=== PATIENT | female | born 1950 | race Hispanic/Latino ===

== ENCOUNTER 2017-10-29 14:01 | Emergency (ER) | payer MEDICARE ==
[2017-10-29 15:00] LABS: Basophils % (Auto) 0.7 % (0.0-1.8); Hematocrit 40.9 % (30.3-42.9); Hemoglobin 13.5 gm/dl (10.1-14.3); Mean Corpuscular HGB Conc 33 % (30-34); Mean Corpuscular Hemoglobin 29 pg (28-32); Mean Corpuscular Volume 88 fl (79-97); Platelet Count 156 K/mm3 (140-440); Red Blood Count 4.65 M/mm3 (3.65-5.03); Red Cell Distribution Width 13.1 % (13.2-15.2); White Blood Count 8.8 K/mm3 (4.5-11.0)
[2017-10-29 15:14] LABS: Anion Gap 19 mmol/L; BUN/Creatinine Ratio 26; Blood Urea Nitrogen 21 mg/dL (7-17); Calcium 9.4 mg/dL (8.4-10.2); Carbon Dioxide 23 mmol/L (22-30); Chloride 102.9 mmol/L (98-107); Glucose 90 mg/dL (65-100); Potassium 4.5 mmol/L (3.6-5.0); Sodium 140 mmol/L (137-145)
[2017-10-29] MEDS ORDERED: NACL 0.9% 1000 ML 1,000 ML ONE (16:13)
[2017-10-29] MEDS ORDERED: NACL 0.9% 1000 ML 1,000 ML IV ONE (16:13)
[2017-10-29 17:18] LABS: Bilirubin,Urine NEG (Negative); Blood,Urine NEG (Negative); Ketones,Urine NEG (Negative); Leukocyte Esterase,Urine NEG (Negative); Mucus,Urine FEW /HPF; Nitrite,Urine NEG (Negative); Protein,Urine <15 mg/dL mg/dL (Negative); Urobilinogen,Urine < 2.0 mg/dL (<2.0); WBC,Urine < 1.0 /HPF (0.0-6.0)
--- NOTE | 2017-10-29 18:14 | Emergency Department Report ---
ED N/V/D HPI - General Chief complaint: Nausea/Vomiting/Diarrhea Stated complaint: HYPOTENSION Time Seen by Provider: 10/29/17 16:06 Source: patient, EMS Mode of arrival: Stretcher Limitations: No Limitations - History of Present Illness Initial comments: Patient sent from [place] for low blood pressure and diarrhea since Friday. She reports her Diarrhea is slowing down and she has been able to tolerate PO. MD complaint: nausea, vomiting, diarrhea -: Sudden, days(s) (4) Description of Vomiting: food contents Description of Diarrhea: water, mucous Associated Abdominal Pain: Yes Location: diffuse Radiation: none Severity: moderate Pain Scale: 6 Quality: cramping, sharp Consistency: constant, intermittent Improves with: movement Worsens with: none Context: sick contacts Associated Symptoms: nausea/vomiting - Related Data Previous Rx's Medication Instructions Recorded Last Taken Type Ondansetron [Zofran TAB] 4 mg PO Q8HR PRN #15 tablet 10/29/17 Unknown Rx Allergies Allergy/AdvReac Type Severity Reaction Status Date / Time No Known Allergies Allergy Unverified 10/29/17 14:02 ED Review of Systems ROS: Stated complaint: HYPOTENSION Other details as noted in HPI Constitutional: weakness. denies: chills, fever Eyes: denies: eye pain, eye discharge, vision change ENT: denies: ear pain, throat pain Respiratory: denies: cough, shortness of breath, wheezing Cardiovascular: denies: chest pain, palpitations Endocrine: no symptoms reported Gastrointestinal: abdominal pain, nausea, vomiting, diarrhea Genitourinary: denies: urgency, dysuria, discharge Musculoskeletal: denies: back pain, joint swelling, arthralgia Skin: denies: rash, lesions Neurological: denies: headache, weakness, paresthesias Psychiatric: denies: anxiety, depression Hematological/Lymphatic: denies: easy bleeding, easy bruising ED Past Medical Hx - Past Medical History Previous Medical History?: Yes Hx Psychiatric Treatment: Yes (depression/stays @ [place]) Additional medical history: chronic back pain - Surgical History Past Surgical History?: No - Social History Smoking Status: Unknown if ever smoked - Medications Home Medications: Home Medications Medication Instructions Recorded Confirmed Last Taken Type Ondansetron [Zofran TAB] 4 mg PO Q8HR PRN #15 tablet 10/29/17 Unknown Rx ED Physical Exam - General Limitations: No Limitations General appearance: alert, in no apparent distress - Head Head exam: Present: atraumatic, normocephalic - Eye Eye exam: Present: normal appearance - ENT ENT exam: Present: mucous membranes moist - Neck Neck exam: Present: normal inspection - Respiratory Respiratory exam: Present: normal lung sounds bilaterally. Absent: respiratory distress - Cardiovascular Cardiovascular Exam: Present: regular rate, normal rhythm. Absent: systolic murmur, diastolic murmur, rubs, gallop - GI/Abdominal GI/Abdominal exam: Present: soft, tenderness (TTP without peritonitis or guarding.), hyperactive bowel sounds - Extremities Exam Extremities exam: Present: normal inspection - Back Exam Back exam: Present: normal inspection - Neurological Exam Neurological exam: Present: alert, oriented X3 - Psychiatric Psychiatric exam: Present: normal affect, normal mood - Skin Skin exam: Present: warm, dry, intact, normal color. Absent: rash ED Course Vital Signs 10/29/17 10/29/17 10/29/17 14:02 14:12 14:15 Temperature Pulse Rate 77 Respiratory 16 Rate Blood Pressure 92/62 94/52 Blood Pressure 93/54 [Right] O2 Sat by Pulse 95 96 Oximetry 10/29/17 10/29/17 10/29/17 14:16 14:30 14:45 Temperature 97.8 F Pulse Rate 73 Respiratory 18 Rate Blood Pressure 92/62 94/59 85/58 Blood Pressure [Right] O2 Sat by Pulse 97 95 97 Oximetry 10/29/17 10/29/17 10/29/17 15:00 15:15 15:30 Temperature Pulse Rate Respiratory Rate Blood Pressure 95/54 96/60 96/62 Blood Pressure [Right] O2 Sat by Pulse 95 96 96 Oximetry 10/29/17 10/29/17 10/29/17 15:45 16:00 16:16 Temperature Pulse Rate 78 71 Respiratory 13 12 Rate Blood Pressure 96/60 96/60 96/65 Blood Pressure [Right] O2 Sat by Pulse 97 98 96 Oximetry 10/29/17 10/29/17 16:30 16:46 Temperature Pulse Rate 71 70 Respiratory 12 13 Rate Blood Pressure 96/65 96/65 Blood Pressure [Right] O2 Sat by Pulse 95 95 Oximetry ED Medical Decision Making - Lab Data Result diagrams: 10/29/17 14:35 10/29/17 14:34 Labs are unremarkable. - Medical Decision Making Patient does appear to be dehydrated with BUN/CR over 20. This would be c/w her recent resolving diarrhea and vomiting. She was given 1L NS and feels much better. Her BP came up to 107/70 and she was able to sit on the side of the bed and tolerate PO. She does not have UTI and is okay to go home. Critical care attestation.: If time is entered above; I have spent that time in minutes in the direct care of this critically ill patient, excluding procedure time. ED Disposition Clinical Impression: Dehydration, Viral gastroenteritis Disposition: DC-01 TO HOME OR SELFCARE Is pt being admited?: No Does the pt Need Aspirin: No Condition: Good Instructions: Dehydration (ED), Gastroenteritis (ED) Prescriptions: Ondansetron [Zofran TAB] 4 mg PO Q8HR PRN #15 tablet PRN Reason: Nausea Referrals: JANUARY BERG [Other] - 3-5 Days Time of Disposition: 18:23
[2017-10-29 18:51] VITALS: BP 103/70
== END 2017-10-29 20:46 | disposition home or self-care (01) ==
LOC: ED 14:01
DX: A08.4 Viral intestinal infection, unspecified (principal); E86.0 Dehydration; I95.9 Hypotension, unspecified
CPT/HCPCS: 36415; 80048; 81001; 85025; 96360; 99285; J7030

== ENCOUNTER 2017-11-08 15:26 | Emergency (ER) | payer MEDICARE ==
[2017-11-08] MEDS ORDERED: ATROVENT IH ONE (16:25)
[2017-11-08] MEDS ORDERED: PROVENTIL IH ONE (16:25)
--- NOTE | 2017-11-08 16:26 | Emergency Department Report ---
ED General Adult HPI - General Chief complaint: Dyspnea/Respdistress Stated complaint: MARLA Time Seen by Provider: 11/08/17 16:18 Source: patient, EMS (ems notes not available at time of chart dictation), RN notes reviewed Mode of arrival: Stretcher Limitations: No Limitations, Altered Mental Status - History of Present Illness Initial comments: This is a 67-year-old female with a history of COPD and bipolar disorder, sent to the ER from a local psychiatric facility for evaluation of COPD exacerbation. He shouldn't is at the local psychiatric facility on a voluntary basis and is not homicidal or suicidal. The patient presents to the ER today with complaint of cough, wheezing, mucus production and shortness of breath. She has no severe headache, neck pain, chest pain, abdominal pain. She has chronic shortness of breath which is neither new, worsening or different. Prehospital vital signs indicate afebrile, blood pressure 122/74, saturating at 94%. Patient apparently also has a history of latent tuberculosis infection, which has been treated. -: Gradual, days(s) Severity scale (0 -10): 10 Consistency: constant Improves with: medication, rest Worsens with: movement Associated Symptoms: cough, shortness of breath, weakness. denies: confusion, chest pain, diaphoresis, fever/chills, headaches, loss of appetite, malaise, nausea/vomiting, seizure - Related Data Previous Rx's Medication Instructions Recorded Last Taken Type Ondansetron [Zofran TAB] 4 mg PO Q8HR PRN #15 tablet 10/29/17 Unknown Rx Acetaminophen [Tylenol Arthritis] 650 mg PO Q6HR PRN #30 tablet.er 11/08/17 Unknown Rx Albuterol Sulfate [Proair 90 mcg IH Q4HR PRN #2 aer.pow.ba 11/08/17 Unknown Rx Respiclick] Azithromycin 250 mg PO QDAY #6 tablet 11/08/17 Unknown Rx Ipratropium Trinchera [Atrovent Hfa] 12.9 gm IH Q4HR #2 hfa.aer.ad 11/08/17 Unknown Rx Ondansetron [Zofran Odt] 4 mg PO Q8HR PRN #20 tab.rapdis 11/08/17 Unknown Rx Allergies Allergy/AdvReac Type Severity Reaction Status Date / Time No Known Allergies Allergy Unverified 11/08/17 16:06 ED Review of Systems ROS: Stated complaint: MARLA Other details as noted in HPI ED Past Medical Hx - Past Medical History Hx Psychiatric Treatment: Yes (depression/stays @ [place]) Additional medical history: chronic back pain - Surgical History Additional Surgical History: NECK AND BACK - Social History Smoking Status: Current Every Day Smoker Substance Use Type: None - Medications Home Medications: Home Medications Medication Instructions Recorded Confirmed Last Taken Type Ondansetron [Zofran TAB] 4 mg PO Q8HR PRN #15 tablet 10/29/17 Unknown Rx Acetaminophen [Tylenol Arthritis] 650 mg PO Q6HR PRN #30 tablet.er 11/08/17 Unknown Rx Albuterol Sulfate [Proair 90 mcg IH Q4HR PRN #2 aer.pow.ba 11/08/17 Unknown Rx Respiclick] Azithromycin 250 mg PO QDAY #6 tablet 11/08/17 Unknown Rx Ipratropium Trinchera [Atrovent Hfa] 12.9 gm IH Q4HR #2 hfa.aer.ad 11/08/17 Unknown Rx Ondansetron [Zofran Odt] 4 mg PO Q8HR PRN #20 tab.rapdis 11/08/17 Unknown Rx ED Physical Exam - General Limitations: No Limitations General appearance: alert, in no apparent distress - Head Head exam: Present: atraumatic, normocephalic - Eye Eye exam: Present: normal appearance, EOMI - ENT ENT exam: Present: normal exam, normal orophraynx, mucous membranes moist - Neck Neck exam: Present: normal inspection, full ROM - Respiratory Respiratory exam: Present: normal lung sounds bilaterally, decreased breath sounds. Absent: respiratory distress, wheezes, rales, rhonchi - Cardiovascular Cardiovascular Exam: Present: regular rate, normal rhythm, normal heart sounds. Absent: bradycardia, tachycardia, irregular rhythm, systolic murmur, diastolic murmur, rubs, gallop - GI/Abdominal GI/Abdominal exam: Present: soft, normal bowel sounds. Absent: distended, tenderness, guarding, rebound, rigid, pulsatile mass - Extremities Exam Extremities exam: Present: normal inspection, full ROM, normal capillary refill. Absent: tenderness, pedal edema, joint swelling, calf tenderness - Back Exam Back exam: Present: normal inspection, full ROM. Absent: tenderness, CVA tenderness (R), paraspinal tenderness, vertebral tenderness - Neurological Exam Neurological exam: Present: alert, oriented X3, CN II-XII intact, other ( Extraocular movements intact. Tongue midline. No facial droop. Facial sensation intact to light touch in the V1, V2, V3 distribution bilaterally. 5 and 5 strength in 4 extremities.. Sensation is intact to light touch in 4 extremities.). Absent: motor sensory deficit - Psychiatric Psychiatric exam: Present: normal affect, normal mood. Absent: homicidal ideation, suicidal ideation - Skin Skin exam: Present: warm, dry, intact, normal color. Absent: rash ED Course Vital Signs 11/08/17 11/08/17 11/08/17 15:56 16:00 16:06 Temperature 98.2 F Pulse Rate 85 83 82 Pulse Rate [ Bilateral Lower Lobe] Respiratory 12 25 H 25 H Rate Respiratory Rate [Bilateral Lower Lobe] Blood Pressure 157/91 157/91 Blood Pressure [Left] O2 Sat by Pulse 92 95 Oximetry 11/08/17 11/08/17 11/08/17 16:11 16:13 16:47 Temperature 98.2 F Pulse Rate 83 85 Pulse Rate [ 84 Bilateral Lower Lobe] Respiratory 20 25 H Rate Respiratory 20 Rate [Bilateral Lower Lobe] Blood Pressure 157/91 Blood Pressure 157/91 [Left] O2 Sat by Pulse 97 95 Oximetry - Reevaluation(s) Reevaluation #1: 11/08/17 18:13 doesnt require 1013 ED Medical Decision Making - Lab Data Result diagrams: 11/08/17 16:21 11/08/17 16:21 Vital Signs 11/08/17 11/08/17 11/08/17 15:56 16:00 16:06 Temperature 98.2 F Pulse Rate 85 83 82 Pulse Rate [ Bilateral Lower Lobe] Respiratory 12 25 H 25 H Rate Respiratory Rate [Bilateral Lower Lobe] Blood Pressure 157/91 157/91 Blood Pressure [Left] O2 Sat by Pulse 92 95 Oximetry 11/08/17 11/08/17 11/08/17 16:11 16:13 16:47 Temperature 98.2 F Pulse Rate 83 85 Pulse Rate [ 84 Bilateral Lower Lobe] Respiratory 20 25 H Rate Respiratory 20 Rate [Bilateral Lower Lobe] Blood Pressure 157/91 Blood Pressure 157/91 [Left] O2 Sat by Pulse 97 95 Oximetry Lab Results 11/08/17 11/08/17 Range/Units 16:21 16:21 WBC 6.0 (4.5-11.0) K/mm3 RBC 4.24 (3.65-5.03) M/mm3 Hgb 12.4 (10.1-14.3) gm/dl Hct 36.8 (30.3-42.9) % MCV 87 (79-97) fl MCH 29 (28-32) pg MCHC 34 (30-34) % RDW 13.3 (13.2-15.2) % Plt Count 164 (140-440) K/mm3 Lymph % (Auto) 19.7 (13.4-35.0) % [place] % (Auto) 12.3 H (0.0-7.3) % Eos % (Auto) 1.5 (0.0-4.3) % Baso % (Auto) 0.6 (0.0-1.8) % Lymph # 1.2 (1.2-5.4) K/mm3 [place] # 0.7 (0.0-0.8) K/mm3 Eos # 0.1 (0.0-0.4) K/mm3 Baso # 0.0 (0.0-0.1) K/mm3 Seg Neutrophils % 65.9 (40.0-70.0) % Seg Neutrophils # 4.0 (1.8-7.7) K/mm3 Sodium 143 (137-145) mmol/L Potassium 4.3 (3.6-5.0) mmol/L Chloride 100.2 (98-107) mmol/L Carbon Dioxide 29 (22-30) mmol/L Anion Gap 18 mmol/L BUN 9 (7-17) mg/dL Creatinine 0.6 L (0.7-1.2) mg/dL Estimated GFR > 60 ml/min BUN/Creatinine Ratio 15 % Glucose 99 (65-100) mg/dL Calcium 8.6 (8.4-10.2) mg/dL Troponin T < 0.010 (0.00-0.029) ng/mL - Radiology Data Radiology results: report reviewed, image reviewed Report Referring Physician: PANCHO BURDEN Patient Name: ERNIE JOHNSON Date of : 1950 Sex: Female Report Date: 2017-11-08 Report Status: Finalized Findings [address] [place] [address] XRay Report Signed Patient: ERNIE JOHNSON MR#: [id number] : 1950 Acct:[id number] Age/Sex: 67 / F ADM Date: 11/08/17 Loc: ED Attending Dr: Ordering Physician: PANCHO BURDEN MD Date of Service: 11/08/17 Procedure(s): XR chest 1V ap Accession Number(s): [id number] cc: PANCHO BURDEN MD Fluoro Time In Minutes: FINAL REPORT PROCEDURE: XR CHEST 1V AP TECHNIQUE: Chest radiograph anteroposterior view. CPT 34528 HISTORY: Shortness of breath. COMPARISON: No prior studies are available for comparison. FINDINGS: Heart: Normal. Mediastinum/Vessels: Mild aortic calcification. Lungs/Pleural space: Left lower lobe linear opacity. Bony thorax: Mild degenerative changes of the spine and shoulders. Cervical spine hardware. Mild osteopenia. Life support devices: None. IMPRESSION: Left lower lobe linear opacity, likely atelectasis. Transcribed By: SIVAN Dictated By: SAMMY SALAZAR MD Electronically Authenticated By: SAMMY SALAZAR MD Signed Date/Time: 11/08/17 130 DD/ 1301 - Medical Decision Making Differential diagnosis, including but not limited to: Bronchitis, COPD, pneumonia Assessment and plan: 67-year-old female sent to the ER for possible COPD exacerbation. She is afebrile with reassuring vital signs with no obvious wheezing, rales or rhonchi were physical examination. She is saturating well, x -ray of the chest suggest left linear lobe atelectasis versus opacity, no obvious wheezing, therefore do not think patient requires steroids. Patient will be treated empirically for bronchitis with albuterol as needed, Atrovent as needed and azithromycin. Patient observed in the ER for a few hours without clinical decompensation, appears well, I see no objective indication for hospital admission at this time, the patient can be discharged back to her psychiatric facility. Critical care attestation.: If time is entered above; I have spent that time in minutes in the direct care of this critically ill patient, excluding procedure time. ED Disposition Clinical Impression: Bronchitis Disposition: DC/TX-65 PSY HOSP/PSY UNIT Is pt being admited?: No Does the pt Need Aspirin: No Condition: Good Instructions: Chronic Bronchitis (ED) Additional Instructions: Continue current outpatient medications. To the breathing medication, antibiotics as directed. Follow-up with the primary care doctor pulmonary doctor within the next 7-10 days. Return to the ER right away or fevers, chills , lethargy, irritability, projectile vomiting, change in mental status, confusion, inability to tolerate liquid feeds. Take pain medication, nausea medication as needed/directed. Referrals: PANCHO CONN MD [Primary Care Provider] - 3-5 Days MICK ULOLA MD [Staff Physician] - 3-5 Days
[2017-11-08] MEDS ORDERED: TYLENOL PO ONE (16:41)
[2017-11-08 16:49] LABS: BUN/Creatinine Ratio 15; Blood Urea Nitrogen 9 mg/dL (7-17); Calcium 8.6 mg/dL (8.4-10.2); Hemolysis Index 22
[2017-11-08 17:05] LABS: Basophils % (Auto) 0.6 % (0.0-1.8); Eosinophils # (Auto) 0.1 K/mm3 (0.0-0.4); Eosinophils % (Auto) 1.5 % (0.0-4.3); Hematocrit 36.8 % (30.3-42.9); Hemoglobin 12.4 gm/dl (10.1-14.3); Lymphocytes # (Auto) 1.2 K/mm3 (1.2-5.4); Lymphocytes % (Auto) 19.7 % (13.4-35.0); Mean Corpuscular HGB Conc 34 % (30-34); Mean Corpuscular Hemoglobin 29 pg (28-32); Mean Corpuscular Volume 87 fl (79-97); Monocytes # (Auto) 0.7 K/mm3 (0.0-0.8); Monocytes % (Auto) 12.3 % (0.0-7.3); Platelet Count 164 K/mm3 (140-440); Red Blood Count 4.24 M/mm3 (3.65-5.03); Red Cell Distribution Width 13.3 % (13.2-15.2)
--- NOTE | 2017-11-08 17:05 | XRay Report ---
FINAL REPORT PROCEDURE: XR CHEST 1V AP TECHNIQUE: Chest radiograph anteroposterior view. CPT 71948 HISTORY: Shortness of breath. COMPARISON: No prior studies are available for comparison. FINDINGS: Heart: Normal. Mediastinum/Vessels: Mild aortic calcification. Lungs/Pleural space: Left lower lobe linear opacity. Bony thorax: Mild degenerative changes of the spine and shoulders. Cervical spine hardware. Mild osteopenia. Life support devices: None. IMPRESSION: Left lower lobe linear opacity, likely atelectasis.
[2017-11-08 22:07] VITALS: BP 118/74
== END 2017-11-08 22:07 ==
LOC: ED 15:26
DX: J40 Bronchitis, not specified as acute or chronic (principal); F17.200 Nicotine dependence, unspecified, uncomplicated
CPT/HCPCS: 36415; 71010; 80048; 82962; 84484; 85025; 94640